=== PATIENT | female | born 1930 | race African-American/Black ===

== ENCOUNTER 2019-04-15 09:55 | Inpatient (IN) | payer BC ==
[~2019-04-15] VITALS: Ht 162.6 cm; Wt 46.8 kg
[2019-04-15 10:53] LABS: BILIRUBIN,URINE SMALL (NEG); CLARITY,URINE CLEAR; COLOR,URINE YELLOW; NITRITE,URINE NEGATIVE (NEG); PH,URINE 5.5; PROTEIN,URINE 100 mg/dL (NEG-TRACE)
[2019-04-15] MEDS ORDERED: IV NORMAL SALINE 500ML BAG 500 ML IV ONE (11:00)
[2019-04-15 11:08] LABS: RBC,URINE RARE /HPF (0-2); WBC,URINE OCC /HPF (0-4)
[2019-04-15 11:09] LABS: AMORPHOUS SEDIMENT,UR PRESENT /HPF; BACTERIA,URINE 0 /HPF (0-FEW); SQUAMOUS EPITHELIAL CELL,UR FEW /LPF
[2019-04-15 11:10] LABS: FECAL OB PT NEGATIVE (NEG)
[2019-04-15 12:07] LABS: BASO % 1 % (0-3); EOS % 0 % (0-3); HEMATOCRIT 31.6 % (36.0-47.0); HEMOGLOBIN 10.3 g/dL (12.0-15.5); LYMPH # 0.7 x10^3/uL (1.0-4.8); LYMPH % 13 % (24-48); MEAN CORPUSCULAR HEMOGLOBIN 30 pg (25-35); MEAN CORPUSCULAR HGB CONC 33 g/dL (31-37); MEAN CORPUSCULAR VOLUME 90 fL (79-100); MONO # 0.3 x10^3/uL (0.0-1.1); MONO % 5 % (0-9); NEUT # 4.5 x10^3/uL (1.8-7.7); NEUT % 81 % (31-73); PLATELET COUNT 203 x10^3/uL (140-400); RED BLOOD COUNT 3.49 x10^6/uL (3.50-5.40); RED CELL DISTRIBUTION WIDTH 16.3 % (11.5-14.5); WHITE BLOOD COUNT 5.6 x10^3/uL (4.0-11.0)
[2019-04-15 12:16] LABS: PROTHROMBIN TIME PATIENT 13.7 SEC (11.7-14.0)
[2019-04-15 12:26] LABS: ANION GAP 12 (6-14); BLOOD UREA NITROGEN 21 mg/dL (7-20); BUN/CREATININE RATIO 16 (6-20); CALCIUM 9.2 mg/dL (8.5-10.1); CARBON DIOXIDE 25 mmol/L (21-32); CHLORIDE 105 mmol/L (98-107); CREATININE 1.3 mg/dL (0.6-1.0); GLUCOSE 118 mg/dL (70-99); POTASSIUM 3.6 mmol/L (3.5-5.1); SODIUM 142 mmol/L (136-145)
[2019-04-15 12:31] LABS: ALBUMIN/GLOBULIN RATIO 0.9 (1.0-1.7); ALK PHOS 66 U/L (46-116); AST (SGOT) 16 U/L (15-37); TOTAL BILIRUBIN 0.2 mg/dL (0.2-1.0); TOTAL PROTEIN 6.5 g/dL (6.4-8.2)
[2019-04-15 12:35] LABS: ALT (SGPT) < 6 U/L (14-59)
[2019-04-15] MEDS ORDERED: IOHEXOL 350 MG/ML 100 ML VIAL. IV ONE (12:45)
[2019-04-15] MEDS ORDERED: CONTRAST GIVEN. MC PRN (13:00)
--- NOTE | 2019-04-15 13:28 | RAD ---
EXAM: CT Angiography of the Abdomen and Pelvis INDICATION: Rectal bleeding TECHNIQUE: CT angiography of the abdomen and pelvis was performed with and without intravenous contrast. Arterial and portal venous phase imaging was performed. Vascular 3D images were generated on a dedicated workstation and reviewed. All CT scans performed at this facility utilize dose optimization techniques as appropriate to the exam, including the following: Automated exposure control and adjustment of the mA and/or KV according to patient size (this includes techniques or standardized protocols for targeted exams where dose is indication/reason for exam). IV CONTRAST: Administered COMPARISON: None FINDINGS: VASCULAR FINDINGS: Precontrast images show no evidence of a sentinel clot or pooling of acute blood products. The arterial phase images reveal no blush of contrast suspicious for active, arterial bleeding. The portal venous phase showed no abnormal enhancement suspicious for acute hemorrhage. There are extensive arterial calcifications in the abdominal aorta and its major branch vessels. Abdominal Aorta and Branches: Celiac axis: No significant stenosis. SMA: No significant stenosis. NATHAN: No significant stenosis. Right renal vessels: Single right renal artery shows no hemodynamically significant stenosis Left renal vessels: There are 2 left renal arteries whose origins are in close proximity. No significant stenosis. Infrarenal aorta: No significant stenosis or aneurysm. Pelvic Vessels: R. Common iliac artery: No significant stenosis. R. External iliac artery: No significant stenosis. R. Internal iliac artery: No significant stenosis. L. Common iliac artery: No significant stenosis. L. External iliac artery: No significant stenosis. L. Internal iliac artery: No significant stenosis. Right Lower Extremity: R. Common femoral artery: No significant stenosis. R. Profunda femoris artery: No significant stenosis. R. SFA: No significant stenosis. Left Lower Extremity: L. Common femoral artery: No significant stenosis. L. Profunda femoris artery: No significant stenosis. L. SFA: No significant stenosis. NON VASCULAR FINDINGS: Numerous layering gallstones, multilevel degenerative spondylosis of the lumbar spine and mild generalized osteopenia. Small amount of pelvic free fluid. IMPRESSION: 1. Extensive atherosclerotic calcifications in the abdominal vessels without evidence of active hemorrhage in the bowel or of flow-limiting stenosis or aneurysm. 2. Multiple additional incidental findings as described in the body of the report. Electronically signed by: Ofelia Briggs MD (04/15/2019 1:25 PM) [facility]
--- NOTE | 2019-04-15 13:40 | PHYS DOC ---
Past Medical History Past Medical History: Hypertension Past Surgical History: Hysterectomy, Other Additional Past Surgical Histo: HERNIA Smoking Status: Never Smoker Alcohol Use: None Adult General Chief Complaint Chief Complaint: VAGINAL BLEEDING HPI HPI Patient is a 88 year old AA female accompanied by her daughter with complaints of vaginal bleeding that began 2 days ago. Daughter states that this morning she found her mother sitting on her bed with a lot of blood clots from her vagina. T he patient told her daughter that she felt weak when she got up to use the restroom so she sat back in the bed. Pt denies abdominal pain, nausea, vomiting, diarrhea, melena, dizziness, chest pain, palpitations, back pain, hematuria, dysuria, fever, cough, or shortness of breath. Pt denies any blood thinner use or taking aspirin. Pt currently denies any pain. Daughter states that her mother used to take aspirin at night but patient denies this. Daughter reports hx of hypertension, and early dementia. Pt just moved here from [place] last December and has not established primary care in this area yet. All other ROS is neg unless otherwise noted in HPI. Review of Systems Review of Systems See Above Current Medications Current Medications Current Medications Medications (Trade) Dose Ordered Sig/Yamile Start Time Stop Time Status Last Admin Dose Admin Info (CONTRAST GIVEN -- Rx MONITORING) 1 each PRN DAILY PRN 04/15/19 13:00 04/17/19 12:59 Iohexol (Omnipaque 350 Mg/ml) 60 ml 1X ONCE 04/15/19 12:45 04/15/19 12:46 DC 04/15/19 12:49 60 ML Sodium Chloride 500 ml @ 500 mls/hr 1X ONCE 04/15/19 11:00 04/15/19 11:59 DC 04/15/19 11:51 500 MLS/HR Allergies Allergies Allergies Coded Allergies Type Severity Reaction Last Updated Verified No Known Drug Allergies 04/15/19 No Physical Exam Physical Exam See Above Constitutional: Well developed, well nourished, no acute distress, non-toxic appearance, hard of hearing. [] HENT: Normocephalic, atraumatic, bilateral external ears normal, oropharynx moist, no oral exudates, nose normal. [] Eyes: PERRLA, EOMI, conjunctiva normal, no discharge. [] Neck: Normal range of motion, no tenderness, supple, no stridor. [] Cardiovascular:Heart rate regular rhythm, no murmur [] Lungs & Thorax: Bilateral breath sounds clear to auscultation [] Pelvic Exam: [employer] present Jessica RN Abdomen: Bowel sounds normal, soft, no tenderness, no masses, no pulsatile masses. External Genitalia: Normal Skin, no tears Speculum: deferred Bimanual: No adnexal masses or tenderness, no bloody discharge Rectal Exam: Normal tone, No mass, Positive control Stool: Maroon Guaiac: Negative Skin: cool, dry, no erythema, no rash. [] Extremities: No cyanosis, no clubbing, ROM intact, no edema. [] Neurologic: Alert and oriented X 3, no focal deficits noted. [] Psychologic: Affect normal, judgement normal, mood normal. [] Current Patient Data Vital Signs Vital Signs Date Time Temp Pulse Resp B/P (MAP) Pulse Ox O2 Delivery O2 Flow Rate FiO2 04/15/19 12:59 74 16 186/86 (119) 100 04/15/19 12:19 Nasal Cannula 2.0 04/15/19 11:35 97.5 97.5 Lab Values Laboratory Tests Test 04/15/19 10:35 04/15/19 10:38 04/15/19 10:45 04/15/19 11:40 Urine Collection Type U cath Urine Color Yellow Urine Clarity Clear Urine pH 5.5 Urine Specific [place] 1.020 Urine Protein 100 mg/dL (NEG-TRACE) Urine Glucose (UA) Negative mg/dL (NEG) Urine Ketones (Stick) Negative mg/dL (NEG) Urine Blood Negative (NEG) Urine Nitrite Negative (NEG) Urine Bilirubin Small (NEG) Urine Urobilinogen Dipstick 1.0 mg/dL (0.2 mg/dL) Urine Leukocyte Esterase Negative (NEG) Urine RBC Rare /HPF (0-2) Urine WBC Occ /HPF (0-4) Urine Squamous Epithelial Cells Few /LPF Urine Amorphous Sediment Present /HPF Urine Bacteria 0 /HPF (0-FEW) Urine Mucus Slight /LPF Stool Occult Blood Negative (NEG) Iron Level 70 ug/dL (50-170) Total Iron Binding Capacity 226 ug/dL (250-450) L Iron Saturation 31 % (15-34) Vitamin B12 Level 397 pg/mL (247-911) Prothrombin Time 13.7 SEC (11.7-14.0) Prothrombin Time INR 1.1 (0.8-1.1) Activated Partial Thromboplast Time 20 SEC (24-38) L Sodium Level 142 mmol/L (136-145) Potassium Level 3.6 mmol/L (3.5-5.1) Chloride Level 105 mmol/L (98-107) Carbon Dioxide Level 25 mmol/L (21-32) Anion Gap 12 (6-14) Blood Urea Nitrogen 21 mg/dL (7-20) H Creatinine 1.3 mg/dL (0.6-1.0) H Estimated GFR (Cockcroft-Gault) 47.0 BUN/Creatinine Ratio 16 (6-20) Glucose Level 118 mg/dL (70-99) H Calcium Level 9.2 mg/dL (8.5-10.1) Total Bilirubin 0.2 mg/dL (0.2-1.0) Aspartate Amino Transferase (AST) 16 U/L (15-37) Alanine Aminotransferase (ALT) < 6 U/L (14-59) L Alkaline Phosphatase 66 U/L (46-116) Total Protein 6.5 g/dL (6.4-8.2) Albumin 3.0 g/dL (3.4-5.0) L Albumin/Globulin Ratio 0.9 (1.0-1.7) L Test 04/15/19 11:45 White Blood Count 5.6 x10^3/uL (4.0-11.0) Red Blood Count 3.49 x10^6/uL (3.50-5.40) L Hemoglobin 10.3 g/dL (12.0-15.5) L Hematocrit 31.6 % (36.0-47.0) L Mean Corpuscular Volume 90 fL (79-100) Mean Corpuscular Hemoglobin 30 pg (25-35) Mean Corpuscular Hemoglobin Concent 33 g/dL (31-37) Red Cell Distribution Width 16.3 % (11.5-14.5) H Platelet Count 203 x10^3/uL (140-400) Neutrophils (%) (Auto) 81 % (31-73) H Lymphocytes (%) (Auto) 13 % (24-48) L Monocytes (%) (Auto) 5 % (0-9) Eosinophils (%) (Auto) 0 % (0-3) Basophils (%) (Auto) 1 % (0-3) Neutrophils # (Auto) 4.5 x10^3/uL (1.8-7.7) Lymphocytes # (Auto) 0.7 x10^3/uL (1.0-4.8) L Monocytes # (Auto) 0.3 x10^3/uL (0.0-1.1) Eosinophils # (Auto) 0.0 x10^3/uL (0.0-0.7) Basophils # (Auto) 0.0 x10^3/uL (0.0-0.2) Laboratory Tests 04/15/19 11:45 Laboratory Tests 04/15/19 11:40 EKG EKG 1100- sinus tachycardia rate 109, no STEMI read by Dr. Vidal[] 1354- SR rate 77, no STEMI read by Dr. Vidal Radiology/Procedures Radiology/Procedures PROCEDURE: CT ANGIOGRAPHY ABD AND PELVIS EXAM: CT Angiography of the Abdomen and Pelvis INDICATION: Rectal bleeding TECHNIQUE: CT angiography of the abdomen and pelvis was performed with and without intravenous contrast. Arterial and portal venous phase imaging was performed. Vascular 3D images were generated on a dedicated workstation and reviewed. All CT scans performed at this facility utilize dose optimization techniques as appropriate to the exam, including the following: Automated exposure control and adjustment of the mA and/or KV according to patient size (this includes techniques or standardized protocols for targeted exams where dose is indication/reason for exam). IV CONTRAST: Administered COMPARISON: None FINDINGS: VASCULAR FINDINGS: Precontrast images show no evidence of a sentinel clot or pooling of acute blood products. The arterial phase images reveal no blush of contrast suspicious for active, arterial bleeding. The portal venous phase showed no abnormal enhancement suspicious for acute hemorrhage. There are extensive arterial calcifications in the abdominal aorta and its major branch vessels. Abdominal Aorta and Branches: Celiac axis: No significant stenosis. SMA: No significant stenosis. NATHAN: No significant stenosis. Right renal vessels: Single right renal artery shows no hemodynamically significant stenosis Left renal vessels: There are 2 left renal arteries whose origins are in close proximity. No significant stenosis. Infrarenal aorta: No significant stenosis or aneurysm. Pelvic Vessels: R. Common iliac artery: No significant stenosis. R. External iliac artery: No significant stenosis. R. Internal iliac artery: No significant stenosis. L. Common iliac artery: No significant stenosis. L. External iliac artery: No significant stenosis. L. Internal iliac artery: No significant stenosis. Right Lower Extremity: R. Common femoral artery: No significant stenosis. R. Profunda femoris artery: No significant stenosis. R. SFA: No significant stenosis. Left Lower Extremity: L. Common femoral artery: No significant stenosis. L. Profunda femoris artery: No significant stenosis. L. SFA: No significant stenosis. NON VASCULAR FINDINGS: Numerous layering gallstones, multilevel degenerative spondylosis of the lumbar spine and mild generalized osteopenia. Small amount of pelvic free fluid. IMPRESSION: 1. Extensive atherosclerotic calcifications in the abdominal vessels without evidence of active hemorrhage in the bowel or of flow-limiting stenosis or aneurysm. 2. Multiple additional incidental findings as described in the body of the report. Course & Med Decision Making Course & Med Decision Making Pertinent Labs and Imaging studies reviewed. (See chart for details) 1352- Spoke with Dr. Vaca who is the admitting physician, and care was assumed following discussion of patient. Patient's vital signs stable. Patient remains afebrile, appears nontoxic, respirations even and unlabored. Patient will be admitted to the med/tele floor. Patient's case and plan of care also discussed with Dr. Vidal [] Chet Disclaimer Chet Disclaimer This electronic medical record was generated, in whole or in part, using a voice recognition dictation system. Departure Departure Impression: Primary Impression: Rectal bleed Disposition: ADMITTED INPATIENT Admitting Physician: KYLEE mena) Condition: STABLE Referrals: NO PCP (PCP) NICOLE ARMSTRONG APRN Apr 15, 2019 13:40
--- NOTE | 2019-04-15 14:56 | EKG ---
[facility] [address] [place] [address] Test Date: 2019-04-15 Test Time: 13:54:55 Pat Name: MOIRA DAVIS Department: Room: Gender: F [facility]: [facility] : 1930 Requested By: STAFF NON Order Number: [id number] Reading MD: Measurements Intervals [place] Rate: 77 P: 7 GA: 176 QRS: -30 QRSD: 144 T: 124 QT: 428 QTc: 486 Interpretive Statements SINUS RHYTHM ABNORMAL LEFT AXIS DEVIATION NON SPECIFIC INTRAVENTRICULAR BLOCK QRS(T) CONTOUR ABNORMALITY CONSIDER ANTEROLATERAL MYOCARDIAL DAMAGE ABNORMAL ECG RI6.01 No previous ECG available for comparison
--- NOTE | 2019-04-15 14:58 | EKG ---
[facility] [address] [place] [address] Test Date: 2019-04-15 Test Time: 11:00:13 Pat Name: MOIRA DAVIS Department: Room: Gender: F Y[employer]uber: : 1930 Requested By: NICOLE ARMSTRONG Order Number: [id number] Reading MD: Measurements Intervals [place] Rate: 109 P: -129 IL: 154 QRS: 22 QRSD: 86 T: -159 QT: 348 QTc: 470 Interpretive Statements SUPRAVENTRICULAR RHYTHM QRS(T) CONTOUR ABNORMALITY CONSIDER ANTEROLATERAL MYOCARDIAL DAMAGE ST & T ABNORMALITY, CONSIDER INFERIOR ISCHEMIA OR LEFT VENTRICULAR STRAIN ABNORMAL ECG RI6.01 No previous ECG available for comparison
[2019-04-15] MEDS ORDERED: ACETAMINOPHEN 325 MG TABLET. PO PRN (15:45)
[2019-04-15] MEDS ORDERED: ZOLPIDEM 5 MG TABLET. PO PRN (15:45)
--- NOTE | 2019-04-15 16:03 | PDOC1 ---
History and Physical Date of Admission Date of Admission 04/15/2019 Source Source: Chart review, Patient History of Present Illness History of Present Illness Patient is an 88-year-old female with past medical history of hypertension who recently moved to this area from [place]. She was living with 3 of her sisters been as home and [facility] [place] independently until they unfortunately had to move independently and are patient came to her daughter in [place]. This morning the patient was in the toilet and she presented hematochezia. The patient denied abdominal discomfort no recent history off excess NSAID use no history of epigastric pain no history of black tarry stools no history of straining or constipation was reported. She denies weight loss. The patient has had a colonoscopy in the past and this was done in [place] around November 2018. The patient has not had any changes to her medications and she takes only amlodipine for blood pressure. She was told to take a baby aspirin as well as part of her daily medications and she has not abused the dosage either. She has not had dietary transgressions no sick contacts either. She was found to have hemodynamically stable condition and H&H above 10, due to the severity of the symptoms this morning we have been asked to admit for GI evaluation. She is in no acute distress denies dyspnea no paroxysmal nocturnal dyspnea was reported no ringing in the ears no pica no headache or blurred vision no other symptoms were reported. Plan of care has been explained detail to the patient and his daughter. CODE STATUS was briefly asked to the patient she said that all things should be done toward her heart stop. She remains a full code Past Medical History Cardiovascular: HTN Social History Smoke: No ALCOHOL: none Drugs: None Current Problem List Problem List Problems Medical Problems: (1) Rectal bleed Status: Acute Current Medications Current Medications Current Medications Medications (Trade) Dose Ordered Sig/Yamile Start Time Stop Time Status Last Admin Dose Admin Acetaminophen (Tylenol) 650 mg PRN Q4HRS PRN 04/15/19 15:45 Info (CONTRAST GIVEN -- Rx MONITORING) 1 each PRN DAILY PRN 04/15/19 13:00 04/17/19 12:59 Iohexol (Omnipaque 350 Mg/ml) 60 ml 1X ONCE 04/15/19 12:45 04/15/19 12:46 DC 04/15/19 12:49 60 ML Sodium Chloride 500 ml @ 500 mls/hr 1X ONCE 04/15/19 11:00 04/15/19 11:59 DC 04/15/19 11:51 500 MLS/HR Zolpidem Tartrate (Ambien) 5 mg PRN QHS PRN 04/15/19 15:45 Allergies Allergies Allergies Coded Allergies Type Severity Reaction Last Updated Verified No Known Drug Allergies 04/15/19 No ROS Review of System CONSTITUTIONAL: No fever or chills EYES: No recent changes SKIN: No rash or itching CARDIOVASCULAR: No chest pain, syncope, palpitations, or edema RESPIRATORY: No SOB or cough GASTROINTESTINAL: No nausea, vomiting or abdominal pain NEUROLOGICAL: No headaches or weakness ENDOCRINE: No cold or heat intolerance GENITOURINARY: No urgency or frequency of urination MUSCULOSKELETAL: No back pain or joint pain LYMPHATICS: No enlarged lymph nodes PSYCHIATRIC: No anxiety or depression Physical Exam Physical Exam GEN.: Elderly thin and frail No apparent distress. Alert and oriented. HEENT: Head is normocephalic, atraumatic NECK: Supple. LUNGS: Clear to auscultation. HEART: RRR, S1, S2 present. Peripheral pulses intact ABDOMEN: Soft, nontender. Positive bowel sounds. EXTREMITIES: Without any cyanosis. NEUROLOGIC: Normal speech, normal tone gram nerves II-12 grossly intact no motor or sensory deficits appreciated PSYCHIATRIC: Normal affect, normal mood. SKIN: No ulcerations Vitals Vitals Vital Signs Date Time Temp Pulse Resp B/P (MAP) Pulse Ox O2 Delivery O2 Flow Rate FiO2 04/15/19 11:49 74 16 154/90 (111) 99 Room Air 04/15/19 11:35 97.5 97.5 Labs Labs Laboratory Tests Test 04/15/19 10:35 04/15/19 10:38 04/15/19 11:40 04/15/19 11:45 Urine Collection Type U cath Urine Color Yellow Urine Clarity Clear Urine pH 5.5 Urine Specific [place] 1.020 Urine Protein 100 mg/dL (NEG-TRACE) Urine Glucose (UA) Negative mg/dL (NEG) Urine Ketones (Stick) Negative mg/dL (NEG) Urine Blood Negative (NEG) Urine Nitrite Negative (NEG) Urine Bilirubin Small (NEG) Urine Urobilinogen Dipstick 1.0 mg/dL (0.2 mg/dL) Urine Leukocyte Esterase Negative (NEG) Urine RBC Rare /HPF (0-2) Urine WBC Occ /HPF (0-4) Urine Squamous Epithelial Cells Few /LPF Urine Amorphous Sediment Present /HPF Urine Bacteria 0 /HPF (0-FEW) Urine Mucus Slight /LPF Stool Occult Blood Negative (NEG) Prothrombin Time 13.7 SEC (11.7-14.0) Prothromb Time International Ratio 1.1 (0.8-1.1) Activated Partial Thromboplast Time 20 SEC (24-38) Sodium Level 142 mmol/L (136-145) Potassium Level 3.6 mmol/L (3.5-5.1) Chloride Level 105 mmol/L (98-107) Carbon Dioxide Level 25 mmol/L (21-32) Anion Gap 12 (6-14) Blood Urea Nitrogen 21 mg/dL (7-20) Creatinine 1.3 mg/dL (0.6-1.0) Estimated GFR (Cockcroft-Gault) 47.0 BUN/Creatinine Ratio 16 (6-20) Glucose Level 118 mg/dL (70-99) Calcium Level 9.2 mg/dL (8.5-10.1) Total Bilirubin 0.2 mg/dL (0.2-1.0) Aspartate Amino Transf (AST/SGOT) 16 U/L (15-37) Alanine Aminotransferase (ALT/SGPT) < 6 U/L (14-59) Alkaline Phosphatase 66 U/L (46-116) Total Protein 6.5 g/dL (6.4-8.2) Albumin 3.0 g/dL (3.4-5.0) Albumin/Globulin Ratio 0.9 (1.0-1.7) White Blood Count 5.6 x10^3/uL (4.0-11.0) Red Blood Count 3.49 x10^6/uL (3.50-5.40) Hemoglobin 10.3 g/dL (12.0-15.5) Hematocrit 31.6 % (36.0-47.0) Mean Corpuscular Volume 90 fL (79-100) Mean Corpuscular Hemoglobin 30 pg (25-35) Mean Corpuscular Hemoglobin Concent 33 g/dL (31-37) Red Cell Distribution Width 16.3 % (11.5-14.5) Platelet Count 203 x10^3/uL (140-400) Neutrophils (%) (Auto) 81 % (31-73) Lymphocytes (%) (Auto) 13 % (24-48) Monocytes (%) (Auto) 5 % (0-9) Eosinophils (%) (Auto) 0 % (0-3) Basophils (%) (Auto) 1 % (0-3) Neutrophils # (Auto) 4.5 x10^3/uL (1.8-7.7) Lymphocytes # (Auto) 0.7 x10^3/uL (1.0-4.8) Monocytes # (Auto) 0.3 x10^3/uL (0.0-1.1) Eosinophils # (Auto) 0.0 x10^3/uL (0.0-0.7) Basophils # (Auto) 0.0 x10^3/uL (0.0-0.2) Laboratory Tests Test 04/15/19 10:35 04/15/19 10:38 04/15/19 11:40 04/15/19 11:45 Urine Collection Type U cath Urine Color Yellow Urine Clarity Clear Urine pH 5.5 Urine Specific [place] 1.020 Urine Protein 100 mg/dL (NEG-TRACE) Urine Glucose (UA) Negative mg/dL (NEG) Urine Ketones (Stick) Negative mg/dL (NEG) Urine Blood Negative (NEG) Urine Nitrite Negative (NEG) Urine Bilirubin Small (NEG) Urine Urobilinogen Dipstick 1.0 mg/dL (0.2 mg/dL) Urine Leukocyte Esterase Negative (NEG) Urine RBC Rare /HPF (0-2) Urine WBC Occ /HPF (0-4) Urine Squamous Epithelial Cells Few /LPF Urine Amorphous Sediment Present /HPF Urine Bacteria 0 /HPF (0-FEW) Urine Mucus Slight /LPF Stool Occult Blood Negative (NEG) Prothrombin Time 13.7 SEC (11.7-14.0) Prothromb Time International Ratio 1.1 (0.8-1.1) Activated Partial Thromboplast Time 20 SEC (24-38) Sodium Level 142 mmol/L (136-145) Potassium Level 3.6 mmol/L (3.5-5.1) Chloride Level 105 mmol/L (98-107) Carbon Dioxide Level 25 mmol/L (21-32) Anion Gap 12 (6-14) Blood Urea Nitrogen 21 mg/dL (7-20) Creatinine 1.3 mg/dL (0.6-1.0) Estimated GFR (Cockcroft-Gault) 47.0 BUN/Creatinine Ratio 16 (6-20) Glucose Level 118 mg/dL (70-99) Calcium Level 9.2 mg/dL (8.5-10.1) Total Bilirubin 0.2 mg/dL (0.2-1.0) Aspartate Amino Transf (AST/SGOT) 16 U/L (15-37) Alanine Aminotransferase (ALT/SGPT) < 6 U/L (14-59) Alkaline Phosphatase 66 U/L (46-116) Total Protein 6.5 g/dL (6.4-8.2) Albumin 3.0 g/dL (3.4-5.0) Albumin/Globulin Ratio 0.9 (1.0-1.7) White Blood Count 5.6 x10^3/uL (4.0-11.0) Red Blood Count 3.49 x10^6/uL (3.50-5.40) Hemoglobin 10.3 g/dL (12.0-15.5) Hematocrit 31.6 % (36.0-47.0) Mean Corpuscular Volume 90 fL (79-100) Mean Corpuscular Hemoglobin 30 pg (25-35) Mean Corpuscular Hemoglobin Concent 33 g/dL (31-37) Red Cell Distribution Width 16.3 % (11.5-14.5) Platelet Count 203 x10^3/uL (140-400) Neutrophils (%) (Auto) 81 % (31-73) Lymphocytes (%) (Auto) 13 % (24-48) Monocytes (%) (Auto) 5 % (0-9) Eosinophils (%) (Auto) 0 % (0-3) Basophils (%) (Auto) 1 % (0-3) Neutrophils # (Auto) 4.5 x10^3/uL (1.8-7.7) Lymphocytes # (Auto) 0.7 x10^3/uL (1.0-4.8) Monocytes # (Auto) 0.3 x10^3/uL (0.0-1.1) Eosinophils # (Auto) 0.0 x10^3/uL (0.0-0.7) Basophils # (Auto) 0.0 x10^3/uL (0.0-0.2) VTE Prophylaxis Ordered VTE Prophylaxis Devices: Yes VTE Pharmacological Prophylaxi: No Assessment/Plan Assessment/Plan Hematochezia most likely diverticular bleed Normocytic anemia History of essential hypertension Advanced age Underweight. She may have a mild case of protein calorie malnutrition Plan: Continue monitoring hemodynamics For further bleeding Reassess labs in the a.m. GI consult Resume home medications VT prophylaxis with SCD SANDRA MARTÍNEZ MD Apr 15, 2019 16:03
--- NOTE | 2019-04-15 16:12 | PDOC2 ---
GI CONSULT Reason For Consult: GI bleeding HPI: HPI: 88 y/o female w/ dementia, history from daughter Delmi with whom she has lived since 12/2018. Found this morning sitting in pool of red blood. Thought it might have come from vagina, h/o hysterectomy. No reflux/heartburn. No dysphagia. Decreased appetite and weight loss (more than 100 pounds) x 5-6 years - daughter attributes to dentures. No n/v. No diarrhea or constipation. No abd pain. No melena. Unclear if previous EGD, remote h/o "ulcer." Might have had a colonoscopy last year in [place] when she was living with her sisters. Gallstones on imaging here. No liver or pancreas history. No NSAID use. PMH: PMH: HTN, hysterectomy, dementia FH: Family History: No pertinent hx Social History: Smoke: No ALCOHOL: none Drugs: None ROS: Limited with dementia but denies pain. Vitals: Vitals: Vital Signs Date Time Temp Pulse Resp B/P (MAP) Pulse Ox O2 Delivery O2 Flow Rate FiO2 04/15/19 11:49 74 16 154/90 (111) 99 Room Air 04/15/19 11:35 97.5 97.5 Labs: Labs: Laboratory Tests Test 04/15/19 10:35 04/15/19 10:38 04/15/19 11:40 04/15/19 11:45 Urine Collection Type U cath Urine Color Yellow Urine Clarity Clear Urine pH 5.5 Urine Specific [place] 1.020 Urine Protein 100 mg/dL (NEG-TRACE) Urine Glucose (UA) Negative mg/dL (NEG) Urine Ketones (Stick) Negative mg/dL (NEG) Urine Blood Negative (NEG) Urine Nitrite Negative (NEG) Urine Bilirubin Small (NEG) Urine Urobilinogen Dipstick 1.0 mg/dL (0.2 mg/dL) Urine Leukocyte Esterase Negative (NEG) Urine RBC Rare /HPF (0-2) Urine WBC Occ /HPF (0-4) Urine Squamous Epithelial Cells Few /LPF Urine Amorphous Sediment Present /HPF Urine Bacteria 0 /HPF (0-FEW) Urine Mucus Slight /LPF Stool Occult Blood Negative (NEG) Prothrombin Time 13.7 SEC (11.7-14.0) Prothromb Time International Ratio 1.1 (0.8-1.1) Activated Partial Thromboplast Time 20 SEC (24-38) Sodium Level 142 mmol/L (136-145) Potassium Level 3.6 mmol/L (3.5-5.1) Chloride Level 105 mmol/L (98-107) Carbon Dioxide Level 25 mmol/L (21-32) Anion Gap 12 (6-14) Blood Urea Nitrogen 21 mg/dL (7-20) Creatinine 1.3 mg/dL (0.6-1.0) Estimated GFR (Cockcroft-Gault) 47.0 BUN/Creatinine Ratio 16 (6-20) Glucose Level 118 mg/dL (70-99) Calcium Level 9.2 mg/dL (8.5-10.1) Total Bilirubin 0.2 mg/dL (0.2-1.0) Aspartate Amino Transf (AST/SGOT) 16 U/L (15-37) Alanine Aminotransferase (ALT/SGPT) < 6 U/L (14-59) Alkaline Phosphatase 66 U/L (46-116) Total Protein 6.5 g/dL (6.4-8.2) Albumin 3.0 g/dL (3.4-5.0) Albumin/Globulin Ratio 0.9 (1.0-1.7) White Blood Count 5.6 x10^3/uL (4.0-11.0) Red Blood Count 3.49 x10^6/uL (3.50-5.40) Hemoglobin 10.3 g/dL (12.0-15.5) Hematocrit 31.6 % (36.0-47.0) Mean Corpuscular Volume 90 fL (79-100) Mean Corpuscular Hemoglobin 30 pg (25-35) Mean Corpuscular Hemoglobin Concent 33 g/dL (31-37) Red Cell Distribution Width 16.3 % (11.5-14.5) Platelet Count 203 x10^3/uL (140-400) Neutrophils (%) (Auto) 81 % (31-73) Lymphocytes (%) (Auto) 13 % (24-48) Monocytes (%) (Auto) 5 % (0-9) Eosinophils (%) (Auto) 0 % (0-3) Basophils (%) (Auto) 1 % (0-3) Neutrophils # (Auto) 4.5 x10^3/uL (1.8-7.7) Lymphocytes # (Auto) 0.7 x10^3/uL (1.0-4.8) Monocytes # (Auto) 0.3 x10^3/uL (0.0-1.1) Eosinophils # (Auto) 0.0 x10^3/uL (0.0-0.7) Basophils # (Auto) 0.0 x10^3/uL (0.0-0.2) Allergies: Coded Allergies: No Known Drug Allergies (Unverified , 04/15/19) Medications: Current Medications Medications (Trade) Dose Ordered Sig/Yamile Route PRN Reason Start Time Stop Time Status Last Admin Dose Admin Sodium Chloride 500 ml @ 500 mls/hr 1X ONCE IV 04/15/19 11:00 04/15/19 11:59 DC 04/15/19 11:51 Iohexol (Omnipaque 350 Mg/ml) 60 ml 1X ONCE IV 04/15/19 12:45 04/15/19 12:46 DC 04/15/19 12:49 Imaging: Imaging: CT angio A/P IMPRESSION: 1. Extensive atherosclerotic calcifications in the abdominal vessels without evidence of active hemorrhage in the bowel or of flow-limiting stenosis or aneurysm. 2. Multiple additional incidental findings as described in the body of the report - please see [facility] records. PE: GEN: NAD, thin HEENT: Atraumatic, PERRL LUNGS: CTAB HEART: RRR ABD: NABS, S/ND/NT EXTREMITY: No edema SKIN: No rashes, no jaundice NEURO/PSYCH: pleasantly confused A/P: A/P: ?hematochezia Anemia, Hemoccult negative - no previous labs to compare Decreased appetite, weight loss - for at least 5 years CRC screen - might have had a colonoscopy in [place] last year Cholelithiasis, atherosclerosis - noted on imaging Dementia -- Daughter concerned that she hasn't eaten since yesterday. Reviewed w/ Dr. Kaufman - ice chips and IVF for now, monitor labs - called and d/w nurse. Add empiric acid-data analytics architect, check anemia parameters. KAYLIE FONSECA Apr 15, 2019 16:12
[2019-04-15] MEDS: PANTOPRAZOLE IV PUSH 40 MG VIAL. IVP SCH (18:26)
[2019-04-15 19:25] VITALS: BP 131/79
[2019-04-15] MEDS: IV NORMAL SALINE 1000ML BAG 1,000 ML IV SCH (23:00)
[2019-04-15 23:20] VITALS: BP 161/85
[2019-04-16] VITALS (11 sets, daily range): BP systolic 132–194; BP diastolic 71–102
[2019-04-16 03:26] LABS: BASO % 0 % (0-3); EOS % 0 % (0-3); HEMATOCRIT 23.7 % (36.0-47.0); HEMOGLOBIN 7.8 g/dL (12.0-15.5); LYMPH # 1.2 x10^3/uL (1.0-4.8); LYMPH % 28 % (24-48); MEAN CORPUSCULAR HEMOGLOBIN 29 pg (25-35); MEAN CORPUSCULAR HGB CONC 33 g/dL (31-37); MEAN CORPUSCULAR VOLUME 89 fL (79-100); MONO # 0.3 x10^3/uL (0.0-1.1); MONO % 8 % (0-9); NEUT # 2.8 x10^3/uL (1.8-7.7); NEUT % 64 % (31-73); PLATELET COUNT 179 x10^3/uL (140-400); RED BLOOD COUNT 2.66 x10^6/uL (3.50-5.40); RED CELL DISTRIBUTION WIDTH 16.8 % (11.5-14.5); WHITE BLOOD COUNT 4.3 x10^3/uL (4.0-11.0)
[2019-04-16 03:36] LABS: CALCIUM 8.3 mg/dL (8.5-10.1); CREATININE 1.2 mg/dL (0.6-1.0); GFR 51.5; POTASSIUM 3.6 mmol/L (3.5-5.1)
[2019-04-16] MEDS: IV NORMAL SALINE 1000ML BAG 1,000 ML IV SCH (07:10)
--- NOTE | 2019-04-16 07:42 | PDOC ---
PROGRESS NOTES Chief Complaint Chief Complaint A/P: Hematochezia most likely diverticular bleed Acute blood loss anemia - Hb drop from >10 to 7.8. Will transfuse 1 unit History of essential hypertension - amlodipine daily Advanced age Underweight mild protein calorie malnutrition History of Present Illness History of Present Illness Ms Mena is an 88 y/o female w/ PMHx HTN, dementia, history from daughter Delmi with whom she has lived since 12/2018. Found this morning sitting in pool of red blood. Thought it might have come from vagina, h/o hysterectomy. No reflux/heartburn. No dysphagia. Decreased appetite and weight loss (more than 100 pounds) x 5-6 years - daughter attributes to dentures. No n/v. No diarrhea or constipation. No abd pain. No melena. Unclear if previous EGD, remote h/o "ulcer." Had a colonoscopy last year in [place] when she was living with her sisters. Gallstones on imaging here. No liver or pancreas history. No NSAID use. She was found to have hemodynamically stable condition and H&H above 10, but dropped to 7.8 within 8 hours, due to the severity of the symptoms this morning we have been asked to admit for GI evaluation. She is in no acute distress denies dyspnea no paroxysmal nocturnal dyspnea was reported no ringing in the ears no pica no headache or blurred vision no other symptoms were reported. BP stable, actually elevated. Plan of care has been explained detail to the patient and his daughter. No further bleeding overnight. CT angiogram negative for acute bleeding. Getting blood today. No CP or SOB. Plan: Repeat Hb in AM Treat diverticulosis Likely d/c in AM Vitals Vitals Vital Signs Date Time Temp Pulse Resp B/P (MAP) Pulse Ox O2 Delivery O2 Flow Rate FiO2 04/16/19 03:20 98.4 65 16 148/71 (96) 97 Room Air 98.4 04/15/19 19:37 2.0 Physical Exam General: Alert, Oriented X3, Cooperative Heart: Regular rate, Normal S1, Normal S2 Lungs: Clear Abdomen: Normal bowel sounds, Soft Extremities: No clubbing, No cyanosis Skin: No rashes, No breakdown Labs LABS Laboratory Tests Test 04/15/19 10:35 04/15/19 10:38 04/15/19 10:45 04/15/19 11:40 Urine Collection Type U cath Urine Color Yellow Urine Clarity Clear Urine pH 5.5 Urine Specific [place] 1.020 Urine Protein 100 mg/dL (NEG-TRACE) Urine Glucose (UA) Negative mg/dL (NEG) Urine Ketones (Stick) Negative mg/dL (NEG) Urine Blood Negative (NEG) Urine Nitrite Negative (NEG) Urine Bilirubin Small (NEG) Urine Urobilinogen Dipstick 1.0 mg/dL (0.2 mg/dL) Urine Leukocyte Esterase Negative (NEG) Urine RBC Rare /HPF (0-2) Urine WBC Occ /HPF (0-4) Urine Squamous Epithelial Cells Few /LPF Urine Amorphous Sediment Present /HPF Urine Bacteria 0 /HPF (0-FEW) Urine Mucus Slight /LPF Stool Occult Blood Negative (NEG) Iron Level 70 ug/dL (50-170) Total Iron Binding Capacity 226 ug/dL (250-450) Iron Saturation 31 % (15-34) Vitamin B12 Level 397 pg/mL (247-911) Prothrombin Time 13.7 SEC (11.7-14.0) Prothromb Time International Ratio 1.1 (0.8-1.1) Activated Partial Thromboplast Time 20 SEC (24-38) Sodium Level 142 mmol/L (136-145) Potassium Level 3.6 mmol/L (3.5-5.1) Chloride Level 105 mmol/L (98-107) Carbon Dioxide Level 25 mmol/L (21-32) Anion Gap 12 (6-14) Blood Urea Nitrogen 21 mg/dL (7-20) Creatinine 1.3 mg/dL (0.6-1.0) Estimated GFR (Cockcroft-Gault) 47.0 BUN/Creatinine Ratio 16 (6-20) Glucose Level 118 mg/dL (70-99) Calcium Level 9.2 mg/dL (8.5-10.1) Total Bilirubin 0.2 mg/dL (0.2-1.0) Aspartate Amino Transf (AST/SGOT) 16 U/L (15-37) Alanine Aminotransferase (ALT/SGPT) < 6 U/L (14-59) Alkaline Phosphatase 66 U/L (46-116) Total Protein 6.5 g/dL (6.4-8.2) Albumin 3.0 g/dL (3.4-5.0) Albumin/Globulin Ratio 0.9 (1.0-1.7) Test 04/15/19 11:45 04/16/19 02:30 White Blood Count 5.6 x10^3/uL (4.0-11.0) 4.3 x10^3/uL (4.0-11.0) Red Blood Count 3.49 x10^6/uL (3.50-5.40) 2.66 x10^6/uL (3.50-5.40) Hemoglobin 10.3 g/dL (12.0-15.5) 7.8 g/dL (12.0-15.5) Hematocrit 31.6 % (36.0-47.0) 23.7 % (36.0-47.0) Mean Corpuscular Volume 90 fL (79-100) 89 fL (79-100) Mean Corpuscular Hemoglobin 30 pg (25-35) 29 pg (25-35) Mean Corpuscular Hemoglobin Concent 33 g/dL (31-37) 33 g/dL (31-37) Red Cell Distribution Width 16.3 % (11.5-14.5) 16.8 % (11.5-14.5) Platelet Count 203 x10^3/uL (140-400) 179 x10^3/uL (140-400) Neutrophils (%) (Auto) 81 % (31-73) 64 % (31-73) Lymphocytes (%) (Auto) 13 % (24-48) 28 % (24-48) Monocytes (%) (Auto) 5 % (0-9) 8 % (0-9) Eosinophils (%) (Auto) 0 % (0-3) 0 % (0-3) Basophils (%) (Auto) 1 % (0-3) 0 % (0-3) Neutrophils # (Auto) 4.5 x10^3/uL (1.8-7.7) 2.8 x10^3/uL (1.8-7.7) Lymphocytes # (Auto) 0.7 x10^3/uL (1.0-4.8) 1.2 x10^3/uL (1.0-4.8) Monocytes # (Auto) 0.3 x10^3/uL (0.0-1.1) 0.3 x10^3/uL (0.0-1.1) Eosinophils # (Auto) 0.0 x10^3/uL (0.0-0.7) 0.0 x10^3/uL (0.0-0.7) Basophils # (Auto) 0.0 x10^3/uL (0.0-0.2) 0.0 x10^3/uL (0.0-0.2) Sodium Level 144 mmol/L (136-145) Potassium Level 3.6 mmol/L (3.5-5.1) Chloride Level 109 mmol/L (98-107) Carbon Dioxide Level 26 mmol/L (21-32) Anion Gap 9 (6-14) Blood Urea Nitrogen 23 mg/dL (7-20) Creatinine 1.2 mg/dL (0.6-1.0) Estimated GFR (Cockcroft-Gault) 51.5 Glucose Level 83 mg/dL (70-99) Calcium Level 8.3 mg/dL (8.5-10.1) Assessment and Plan Assessmemt and Plan Problems Medical Problems: (1) Rectal bleed Status: Acute Comment Review of Relevant I have reviewed the following items sheng (where applicable) has been applied. Labs Laboratory Tests Test 04/15/19 10:35 04/15/19 10:38 04/15/19 10:45 04/15/19 11:40 Urine Collection Type U cath Urine Color Yellow Urine Clarity Clear Urine pH 5.5 Urine Specific [place] 1.020 Urine Protein 100 mg/dL (NEG-TRACE) Urine Glucose (UA) Negative mg/dL (NEG) Urine Ketones (Stick) Negative mg/dL (NEG) Urine Blood Negative (NEG) Urine Nitrite Negative (NEG) Urine Bilirubin Small (NEG) Urine Urobilinogen Dipstick 1.0 mg/dL (0.2 mg/dL) Urine Leukocyte Esterase Negative (NEG) Urine RBC Rare /HPF (0-2) Urine WBC Occ /HPF (0-4) Urine Squamous Epithelial Cells Few /LPF Urine Amorphous Sediment Present /HPF Urine Bacteria 0 /HPF (0-FEW) Urine Mucus Slight /LPF Stool Occult Blood Negative (NEG) Iron Level 70 ug/dL (50-170) Total Iron Binding Capacity 226 ug/dL (250-450) Iron Saturation 31 % (15-34) Vitamin B12 Level 397 pg/mL (247-911) Prothrombin Time 13.7 SEC (11.7-14.0) Prothromb Time International Ratio 1.1 (0.8-1.1) Activated Partial Thromboplast Time 20 SEC (24-38) Sodium Level 142 mmol/L (136-145) Potassium Level 3.6 mmol/L (3.5-5.1) Chloride Level 105 mmol/L (98-107) Carbon Dioxide Level 25 mmol/L (21-32) Anion Gap 12 (6-14) Blood Urea Nitrogen 21 mg/dL (7-20) Creatinine 1.3 mg/dL (0.6-1.0) Estimated GFR (Cockcroft-Gault) 47.0 BUN/Creatinine Ratio 16 (6-20) Glucose Level 118 mg/dL (70-99) Calcium Level 9.2 mg/dL (8.5-10.1) Total Bilirubin 0.2 mg/dL (0.2-1.0) Aspartate Amino Transf (AST/SGOT) 16 U/L (15-37) Alanine Aminotransferase (ALT/SGPT) < 6 U/L (14-59) Alkaline Phosphatase 66 U/L (46-116) Total Protein 6.5 g/dL (6.4-8.2) Albumin 3.0 g/dL (3.4-5.0) Albumin/Globulin Ratio 0.9 (1.0-1.7) Test 04/15/19 11:45 04/16/19 02:30 White Blood Count 5.6 x10^3/uL (4.0-11.0) 4.3 x10^3/uL (4.0-11.0) Red Blood Count 3.49 x10^6/uL (3.50-5.40) 2.66 x10^6/uL (3.50-5.40) Hemoglobin 10.3 g/dL (12.0-15.5) 7.8 g/dL (12.0-15.5) Hematocrit 31.6 % (36.0-47.0) 23.7 % (36.0-47.0) Mean Corpuscular Volume 90 fL (79-100) 89 fL (79-100) Mean Corpuscular Hemoglobin 30 pg (25-35) 29 pg (25-35) Mean Corpuscular Hemoglobin Concent 33 g/dL (31-37) 33 g/dL (31-37) Red Cell Distribution Width 16.3 % (11.5-14.5) 16.8 % (11.5-14.5) Platelet Count 203 x10^3/uL (140-400) 179 x10^3/uL (140-400) Neutrophils (%) (Auto) 81 % (31-73) 64 % (31-73) Lymphocytes (%) (Auto) 13 % (24-48) 28 % (24-48) Monocytes (%) (Auto) 5 % (0-9) 8 % (0-9) Eosinophils (%) (Auto) 0 % (0-3) 0 % (0-3) Basophils (%) (Auto) 1 % (0-3) 0 % (0-3) Neutrophils # (Auto) 4.5 x10^3/uL (1.8-7.7) 2.8 x10^3/uL (1.8-7.7) Lymphocytes # (Auto) 0.7 x10^3/uL (1.0-4.8) 1.2 x10^3/uL (1.0-4.8) Monocytes # (Auto) 0.3 x10^3/uL (0.0-1.1) 0.3 x10^3/uL (0.0-1.1) Eosinophils # (Auto) 0.0 x10^3/uL (0.0-0.7) 0.0 x10^3/uL (0.0-0.7) Basophils # (Auto) 0.0 x10^3/uL (0.0-0.2) 0.0 x10^3/uL (0.0-0.2) Sodium Level 144 mmol/L (136-145) Potassium Level 3.6 mmol/L (3.5-5.1) Chloride Level 109 mmol/L (98-107) Carbon Dioxide Level 26 mmol/L (21-32) Anion Gap 9 (6-14) Blood Urea Nitrogen 23 mg/dL (7-20) Creatinine 1.2 mg/dL (0.6-1.0) Estimated GFR (Cockcroft-Gault) 51.5 Glucose Level 83 mg/dL (70-99) Calcium Level 8.3 mg/dL (8.5-10.1) Laboratory Tests Test 04/15/19 10:35 04/15/19 10:38 04/15/19 10:45 04/15/19 11:40 Urine Collection Type U cath Urine Color Yellow Urine Clarity Clear Urine pH 5.5 Urine Specific [place] 1.020 Urine Protein 100 mg/dL (NEG-TRACE) Urine Glucose (UA) Negative mg/dL (NEG) Urine Ketones (Stick) Negative mg/dL (NEG) Urine Blood Negative (NEG) Urine Nitrite Negative (NEG) Urine Bilirubin Small (NEG) Urine Urobilinogen Dipstick 1.0 mg/dL (0.2 mg/dL) Urine Leukocyte Esterase Negative (NEG) Urine RBC Rare /HPF (0-2) Urine WBC Occ /HPF (0-4) Urine Squamous Epithelial Cells Few /LPF Urine Amorphous Sediment Present /HPF Urine Bacteria 0 /HPF (0-FEW) Urine Mucus Slight /LPF Stool Occult Blood Negative (NEG) Iron Level 70 ug/dL (50-170) Total Iron Binding Capacity 226 ug/dL (250-450) Iron Saturation 31 % (15-34) Vitamin B12 Level 397 pg/mL (247-911) Prothrombin Time 13.7 SEC (11.7-14.0) Prothromb Time International Ratio 1.1 (0.8-1.1) Activated Partial Thromboplast Time 20 SEC (24-38) Sodium Level 142 mmol/L (136-145) Potassium Level 3.6 mmol/L (3.5-5.1) Chloride Level 105 mmol/L (98-107) Carbon Dioxide Level 25 mmol/L (21-32) Anion Gap 12 (6-14) Blood Urea Nitrogen 21 mg/dL (7-20) Creatinine 1.3 mg/dL (0.6-1.0) Estimated GFR (Cockcroft-Gault) 47.0 BUN/Creatinine Ratio 16 (6-20) Glucose Level 118 mg/dL (70-99) Calcium Level 9.2 mg/dL (8.5-10.1) Total Bilirubin 0.2 mg/dL (0.2-1.0) Aspartate Amino Transf (AST/SGOT) 16 U/L (15-37) Alanine Aminotransferase (ALT/SGPT) < 6 U/L (14-59) Alkaline Phosphatase 66 U/L (46-116) Total Protein 6.5 g/dL (6.4-8.2) Albumin 3.0 g/dL (3.4-5.0) Albumin/Globulin Ratio 0.9 (1.0-1.7) Test 04/15/19 11:45 04/16/19 02:30 White Blood Count 5.6 x10^3/uL (4.0-11.0) 4.3 x10^3/uL (4.0-11.0) Red Blood Count 3.49 x10^6/uL (3.50-5.40) 2.66 x10^6/uL (3.50-5.40) Hemoglobin 10.3 g/dL (12.0-15.5) 7.8 g/dL (12.0-15.5) Hematocrit 31.6 % (36.0-47.0) 23.7 % (36.0-47.0) Mean Corpuscular Volume 90 fL (79-100) 89 fL (79-100) Mean Corpuscular Hemoglobin 30 pg (25-35) 29 pg (25-35) Mean Corpuscular Hemoglobin Concent 33 g/dL (31-37) 33 g/dL (31-37) Red Cell Distribution Width 16.3 % (11.5-14.5) 16.8 % (11.5-14.5) Platelet Count 203 x10^3/uL (140-400) 179 x10^3/uL (140-400) Neutrophils (%) (Auto) 81 % (31-73) 64 % (31-73) Lymphocytes (%) (Auto) 13 % (24-48) 28 % (24-48) Monocytes (%) (Auto) 5 % (0-9) 8 % (0-9) Eosinophils (%) (Auto) 0 % (0-3) 0 % (0-3) Basophils (%) (Auto) 1 % (0-3) 0 % (0-3) Neutrophils # (Auto) 4.5 x10^3/uL (1.8-7.7) 2.8 x10^3/uL (1.8-7.7) Lymphocytes # (Auto) 0.7 x10^3/uL (1.0-4.8) 1.2 x10^3/uL (1.0-4.8) Monocytes # (Auto) 0.3 x10^3/uL (0.0-1.1) 0.3 x10^3/uL (0.0-1.1) Eosinophils # (Auto) 0.0 x10^3/uL (0.0-0.7) 0.0 x10^3/uL (0.0-0.7) Basophils # (Auto) 0.0 x10^3/uL (0.0-0.2) 0.0 x10^3/uL (0.0-0.2) Sodium Level 144 mmol/L (136-145) Potassium Level 3.6 mmol/L (3.5-5.1) Chloride Level 109 mmol/L (98-107) Carbon Dioxide Level 26 mmol/L (21-32) Anion Gap 9 (6-14) Blood Urea Nitrogen 23 mg/dL (7-20) Creatinine 1.2 mg/dL (0.6-1.0) Estimated GFR (Cockcroft-Gault) 51.5 Glucose Level 83 mg/dL (70-99) Calcium Level 8.3 mg/dL (8.5-10.1) Medications Current Medications Sodium Chloride 500 ml @ 500 mls/hr 1X ONCE IV Last administered on 04/15/19at 11:51; Start 04/15/19 at 11:00; Stop 04/15/19 at 11:59; Status DC Iohexol (Omnipaque 350 Mg/ml) 60 ml 1X ONCE IV Last administered on 04/15/19at 12:49; Start 04/15/19 at 12:45; Stop 04/15/19 at 12:46; Status DC Info (CONTRAST GIVEN -- Rx MONITORING) 1 each PRN DAILY PRN MC SEE COMMENTS; Start 04/15/19 at 13:00; Stop 04/17/19 at 12:59 Zolpidem Tartrate (Ambien) 5 mg PRN QHS PRN PO INSOMNIA; Start 04/15/19 at 15:45 Acetaminophen (Tylenol) 650 mg PRN Q4HRS PRN PO TEMP OVER 100.4F OR MILD PAIN; Start 04/15/19 at 15:45 Pantoprazole Sodium (PROTONIX VIAL for IV PUSH) 40 mg DAILYAC IVP Last a dministered on 04/15/19at 18:26; Start 04/15/19 at 17:00 Sodium Chloride 1,000 ml @ 75 mls/hr [id number] IV Last administered on 04/16/19at 07:10; Start 04/15/19 at 23:00 Vitals/I & O Vital Sign - Last 24 Hours 04/15/19 04/15/19 04/15/19 04/15/19 10:13 10:49 11:19 11:35 Temp 95.4 97.5 95.4 97.5 Pulse 70 74 70 Resp 20 20 20 B/P (MAP) 155/88 (110) 158/106 (123) 133/90 (104) Pulse Ox 100 96 100 O2 Delivery Room Air Room Air 04/15/19 04/15/19 04/15/19 04/15/19 11:49 12:19 12:59 13:59 Pulse 74 60 74 70 Resp 16 16 16 16 B/P (MAP) 154/90 (111) 148/80 (102) 186/86 (119) 167/94 (118) Pulse Ox 99 100 100 100 O2 Delivery Nasal Cannula Nasal Cannula O2 Flow Rate 2.0 2.0 04/15/19 04/15/19 04/15/19 04/15/19 14:59 16:00 19:25 19:37 Temp 98.5 98.5 Pulse 64 71 Resp 16 16 B/P (MAP) 161/92 (115) 131/79 (96) Pulse Ox 100 98 O2 Delivery Nasal Cannula Nasal Cannula Room Air Nasal Cannula O2 Flow Rate 2.0 2.0 2.0 04/15/19 04/16/19 23:20 03:20 Temp 99.1 98.4 99.1 98.4 Pulse 63 65 Resp 16 16 B/P (MAP) 161/85 (110) 148/71 (96) Pulse Ox 97 97 O2 Delivery Room Air Room Air Intake and Output 04/15/19 04/15/19 04/16/19 15:00 23:00 07:00 Intake Total 200 ml Balance 200 ml MARIANNE CARABALLO MD Apr 16, 2019 07:42
[2019-04-16] MEDS ORDERED: CYANOCOBALAMIN (VITAMIN B-12) 1,000 MCG/ML VIAL IM ONE (07:45)
[2019-04-16] MEDS: PANTOPRAZOLE IV PUSH 40 MG VIAL. IVP SCH (08:27)
--- NOTE | 2019-04-16 09:41 | PDOC ---
Subjective: Subjective: No recurrent bleeding per daughter and pt. Wondering about 'scopes - also wants nothing invasive. Wants her to eat. If nothing else to be done, says she can monitor at home where she would complain less and she could have her back here in 10 min if bleeding recurred. Objective: Objective: No bleeding per nurse, family wants her to eat. Vital Signs: Vital Signs Date Time Temp Pulse Resp B/P (MAP) Pulse Ox O2 Delivery O2 Flow Rate FiO2 04/16/19 08:00 Room Air 04/16/19 07:00 98.2 66 18 145/79 (101) 98 98.2 04/15/19 19:37 2.0 Labs: Laboratory Tests Test 04/15/19 10:35 04/15/19 10:38 04/15/19 10:45 04/15/19 11:40 Urine Collection Type U cath Urine Color Yellow Urine Clarity Clear Urine pH 5.5 Urine Specific [place] 1.020 Urine Protein 100 mg/dL Urine Glucose (UA) Negative mg/dL Urine Ketones (Stick) Negative mg/dL Urine Blood Negative Urine Nitrite Negative Urine Bilirubin Small Urine Urobilinogen Dipstick 1.0 mg/dL Urine Leukocyte Esterase Negative Urine RBC Rare /HPF Urine WBC Occ /HPF Urine Squamous Epithelial Cells Few /LPF Urine Amorphous Sediment Present /HPF Urine Bacteria 0 /HPF Urine Mucus Slight /LPF Stool Occult Blood Negative Iron Level 70 ug/dL Total Iron Binding Capacity 226 ug/dL Iron Saturation 31 % Vitamin B12 Level 397 pg/mL Prothrombin Time 13.7 SEC Prothromb Time International Ratio 1.1 Activated Partial Thromboplast Time 20 SEC Sodium Level 142 mmol/L Potassium Level 3.6 mmol/L Chloride Level 105 mmol/L Carbon Dioxide Level 25 mmol/L Anion Gap 12 Blood Urea Nitrogen 21 mg/dL Creatinine 1.3 mg/dL Estimated GFR (Cockcroft-Gault) 47.0 BUN/Creatinine Ratio 16 Glucose Level 118 mg/dL Calcium Level 9.2 mg/dL Total Bilirubin 0.2 mg/dL Aspartate Amino Transf (AST/SGOT) 16 U/L Alanine Aminotransferase (ALT/SGPT) < 6 U/L Alkaline Phosphatase 66 U/L Total Protein 6.5 g/dL Albumin 3.0 g/dL Albumin/Globulin Ratio 0.9 Test 04/15/19 11:45 04/16/19 02:30 White Blood Count 5.6 x10^3/uL 4.3 x10^3/uL Red Blood Count 3.49 x10^6/uL 2.66 x10^6/uL Hemoglobin 10.3 g/dL 7.8 g/dL Hematocrit 31.6 % 23.7 % Mean Corpuscular Volume 90 fL 89 fL Mean Corpuscular Hemoglobin 30 pg 29 pg Mean Corpuscular Hemoglobin Concent 33 g/dL 33 g/dL Red Cell Distribution Width 16.3 % 16.8 % Platelet Count 203 x10^3/uL 179 x10^3/uL Neutrophils (%) (Auto) 81 % 64 % Lymphocytes (%) (Auto) 13 % 28 % Monocytes (%) (Auto) 5 % 8 % Eosinophils (%) (Auto) 0 % 0 % Basophils (%) (Auto) 1 % 0 % Neutrophils # (Auto) 4.5 x10^3/uL 2.8 x10^3/uL Lymphocytes # (Auto) 0.7 x10^3/uL 1.2 x10^3/uL Monocytes # (Auto) 0.3 x10^3/uL 0.3 x10^3/uL Eosinophils # (Auto) 0.0 x10^3/uL 0.0 x10^3/uL Basophils # (Auto) 0.0 x10^3/uL 0.0 x10^3/uL Sodium Level 144 mmol/L Potassium Level 3.6 mmol/L Chloride Level 109 mmol/L Carbon Dioxide Level 26 mmol/L Anion Gap 9 Blood Urea Nitrogen 23 mg/dL Creatinine 1.2 mg/dL Estimated GFR (Cockcroft-Gault) 51.5 Glucose Level 83 mg/dL Calcium Level 8.3 mg/dL PE: GEN: NAD LUNGS: CTAB HEART: RRR ABD: NABS, S/ND/NT NEURO/PSYCH: pleasantly confused A/P: ?hematochezia - no recurrence, ?colonoscopy last year in [place] Anemia, Hemoccult negative - Hgb from 10.1 to 7.8 Decreased appetite, weight loss - chronic issue, daughter attributes to dentures Dementia -- Reviewed daughter's concerns with Dr. Kaufman - okay to try clears, also recom mends transfusion 1 unit pBRCs - called to nurse. Low normal B12 - ?start replacement. Hemodynamically unstable?: No Is patient in severe pain?: No Is NPO status required?: No KAYLIE FONSECA Apr 16, 2019 09:41
[2019-04-16] MEDS ORDERED: LABETALOL 20 MG/4 ML DISP.SYRIN. IVP PRN (12:30)
[2019-04-16] MEDS: amLODIPine BESYLATE 10 MG TABLET PO SCH (13:04)
[2019-04-16] MEDS: PSYLLIUM HUSK (SUGAR FREE) 1 PKT PACKET PO SCH (13:05)
--- NOTE | 2019-04-16 15:40 | NUR ---
SS following for discharge planning. SS reviewed pt chart. Pt is from home with daughter and is currently on room air. PT/OT recommending home with care. SS will continue to follow for discharge planning.
[2019-04-17 03:33] VITALS: BP 184/94
[2019-04-17 07:00] VITALS: BP 174/85
[2019-04-17] MEDS ORDERED: PANTOPRAZOLE 40 MG TABLET.DR. PO SCH (07:30)
--- NOTE | 2019-04-17 07:31 | PDOC ---
PROGRESS NOTES Chief Complaint Chief Complaint A/P: Hematochezia most likely diverticular bleed Acute blood loss anemia - Hb drop from >10 to 7.8. Will transfuse 1 unit History of essential hypertension - amlodipine daily Advanced age Underweight mild protein calorie malnutrition History of Present Illness History of Present Illness Ms Mena is an 88 y/o female w/ PMHx HTN, dementia, history from daughter Delmi with whom she has lived since 12/2018. Found this morning sitting in pool of red blood. Thought it might have come from vagina, h/o hysterectomy. No reflux/heartburn. No dysphagia. Decreased appetite and weight loss (more than 100 pounds) x 5-6 years - daughter attributes to dentures. No n/v. No diarrhea or constipation. No abd pain. No melena. Unclear if previous EGD, remote h/o "ulcer." Had a colonoscopy last year in [place] when she was living with her sisters. Gallstones on imaging here. No liver or pancreas history. No NSAID use. She was found to have hemodynamically stable condition and H&H above 10, but dropped to 7.8 within 8 hours, due to the severity of the symptoms this morning we have been asked to admit for GI evaluation. She is in no acute distress denies dyspnea no paroxysmal nocturnal dyspnea was reported no ringing in the ears no pica no headache or blurred vision no other symptoms were reported. BP stable, actually elevated. Plan of care has been explained detail to the patient and his daughter. 04/16: No further bleeding overnight. CT angiogram negative for acute bleeding. Getting blood today. No CP or SOB. Hb up to 10 post transfusion. No further bleeding, ready for home. Plan: Repeat Hb in AM Treat diverticulosis Likely d/c in AM Vitals Vitals Vital Signs Date Time Temp Pulse Resp B/P (MAP) Pulse Ox O2 Delivery O2 Flow Rate FiO2 04/17/19 04:05 78 184/94 04/17/19 03:33 98.1 18 100 Room Air 98.1 04/16/19 20:03 2.0 Physical Exam General: Alert, Oriented X3, Cooperative Heart: Regular rate, Normal S1, Normal S2 Lungs: Clear Abdomen: Normal bowel sounds, Soft Extremities: No clubbing, No cyanosis Skin: No rashes, No breakdown Assessment and Plan Assessmemt and Plan Problems Medical Problems: (1) Rectal bleed Status: Acute Comment Review of Relevant I have reviewed the following items sheng (where applicable) has been applied. Labs Laboratory Tests Test 04/15/19 10:35 04/15/19 10:38 04/15/19 10:45 04/15/19 11:40 Urine Collection Type U cath Urine Color Yellow Urine Clarity Clear Urine pH 5.5 Urine Specific [place] 1.020 Urine Protein 100 mg/dL (NEG-TRACE) Urine Glucose (UA) Negative mg/dL (NEG) Urine Ketones (Stick) Negative mg/dL (NEG) Urine Blood Negative (NEG) Urine Nitrite Negative (NEG) Urine Bilirubin Small (NEG) Urine Urobilinogen Dipstick 1.0 mg/dL (0.2 mg/dL) Urine Leukocyte Esterase Negative (NEG) Urine RBC Rare /HPF (0-2) Urine WBC Occ /HPF (0-4) Urine Squamous Epithelial Cells Few /LPF Urine Amorphous Sediment Present /HPF Urine Bacteria 0 /HPF (0-FEW) Urine Mucus Slight /LPF Stool Occult Blood Negative (NEG) Iron Level 70 ug/dL (50-170) Total Iron Binding Capacity 226 ug/dL (250-450) Iron Saturation 31 % (15-34) Vitamin B12 Level 397 pg/mL (247-911) Prothrombin Time 13.7 SEC (11.7-14.0) Prothromb Time International Ratio 1.1 (0.8-1.1) Activated Partial Thromboplast Time 20 SEC (24-38) Sodium Level 142 mmol/L (136-145) Potassium Level 3.6 mmol/L (3.5-5.1) Chloride Level 105 mmol/L (98-107) Carbon Dioxide Level 25 mmol/L (21-32) Anion Gap 12 (6-14) Blood Urea Nitrogen 21 mg/dL (7-20) Creatinine 1.3 mg/dL (0.6-1.0) Estimated GFR (Cockcroft-Gault) 47.0 BUN/Creatinine Ratio 16 (6-20) Glucose Level 118 mg/dL (70-99) Calcium Level 9.2 mg/dL (8.5-10.1) Total Bilirubin 0.2 mg/dL (0.2-1.0) Aspartate Amino Transf (AST/SGOT) 16 U/L (15-37) Alanine Aminotransferase (ALT/SGPT) < 6 U/L (14-59) Alkaline Phosphatase 66 U/L (46-116) Total Protein 6.5 g/dL (6.4-8.2) Albumin 3.0 g/dL (3.4-5.0) Albumin/Globulin Ratio 0.9 (1.0-1.7) Test 04/15/19 11:45 04/16/19 02:30 White Blood Count 5.6 x10^3/uL (4.0-11.0) 4.3 x10^3/uL (4.0-11.0) Red Blood Count 3.49 x10^6/uL (3.50-5.40) 2.66 x10^6/uL (3.50-5.40) Hemoglobin 10.3 g/dL (12.0-15.5) 7.8 g/dL (12.0-15.5) Hematocrit 31.6 % (36.0-47.0) 23.7 % (36.0-47.0) Mean Corpuscular Volume 90 fL (79-100) 89 fL (79-100) Mean Corpuscular Hemoglobin 30 pg (25-35) 29 pg (25-35) Mean Corpuscular Hemoglobin Concent 33 g/dL (31-37) 33 g/dL (31-37) Red Cell Distribution Width 16.3 % (11.5-14.5) 16.8 % (11.5-14.5) Platelet Count 203 x10^3/uL (140-400) 179 x10^3/uL (140-400) Neutrophils (%) (Auto) 81 % (31-73) 64 % (31-73) Lymphocytes (%) (Auto) 13 % (24-48) 28 % (24-48) Monocytes (%) (Auto) 5 % (0-9) 8 % (0-9) Eosinophils (%) (Auto) 0 % (0-3) 0 % (0-3) Basophils (%) (Auto) 1 % (0-3) 0 % (0-3) Neutrophils # (Auto) 4.5 x10^3/uL (1.8-7.7) 2.8 x10^3/uL (1.8-7.7) Lymphocytes # (Auto) 0.7 x10^3/uL (1.0-4.8) 1.2 x10^3/uL (1.0-4.8) Monocytes # (Auto) 0.3 x10^3/uL (0.0-1.1) 0.3 x10^3/uL (0.0-1.1) Eosinophils # (Auto) 0.0 x10^3/uL (0.0-0.7) 0.0 x10^3/uL (0.0-0.7) Basophils # (Auto) 0.0 x10^3/uL (0.0-0.2) 0.0 x10^3/uL (0.0-0.2) Sodium Level 144 mmol/L (136-145) Potassium Level 3.6 mmol/L (3.5-5.1) Chloride Level 109 mmol/L (98-107) Carbon Dioxide Level 26 mmol/L (21-32) Anion Gap 9 (6-14) Blood Urea Nitrogen 23 mg/dL (7-20) Creatinine 1.2 mg/dL (0.6-1.0) Estimated GFR (Cockcroft-Gault) 51.5 Glucose Level 83 mg/dL (70-99) Calcium Level 8.3 mg/dL (8.5-10.1) Medications Current Medications Sodium Chloride 500 ml @ 500 mls/hr 1X ONCE IV Last administered on 04/15/19at 11:51; Start 04/15/19 at 11:00; Stop 04/15/19 at 11:59; Status DC Iohexol (Omnipaque 350 Mg/ml) 60 ml 1X ONCE IV Last administered on 04/15/19at 12:49; Start 04/15/19 at 12:45; Stop 04/15/19 at 12:46; Status DC Info (CONTRAST GIVEN -- Rx MONITORING) 1 each PRN DAILY PRN MC SEE COMMENTS; Start 04/15/19 at 13:00; Stop 04/17/19 at 12:59 Zolpidem Tartrate (Ambien) 5 mg PRN QHS PRN PO INSOMNIA; Start 04/15/19 at 15:45 Acetaminophen (Tylenol) 650 mg PRN Q4HRS PRN PO TEMP OVER 100.4F OR MILD PAIN; Start 2/5/20 at 15:45 Pantoprazole Sodium (PROTONIX VIAL for IV PUSH) 40 mg DAILYAC IVP Last administered on 04/16/19at 08:27; Start 04/15/19 at 17:00; Stop 04/16/19 at 09:37; Status DC Sodium Chloride 1,000 ml @ 75 mls/hr [id number] IV Last administered on 04/16/19at 07:10; Start 04/15/19 at 23:00; Stop 04/16/19 at 12:21; Status DC Cyanocobalamin (Vitamin B-12) 1,000 mcg 1X ONCE IM Last administered on 04/16/19at 10:45; Start 04/16/19 at 07:45; Stop 04/16/19 at 07:50; Status DC Pantoprazole Sodium (Protonix) 40 mg DAILYAC PO ; Start 04/17/19 at 07:30 Amlodipine Besylate (Norvasc) 10 mg DAILY PO Last administered on 04/16/19at 13:04; Start 04/16/19 at 12:30 Psyllium Hydrophilic Mucilloid (Metamucil Fiber Packet) 1 pkt DAILY PO Last administered on 04/16/19at 13:05; Start 04/16/19 at 12:30 Labetalol HCl (Normodyne Iv Push) 10 mg PRN Q2HR PRN IVP HYPERTENSION Last administered on 04/17/19at 04:05; Start 04/16/19 at 12:30 Vitals/I & O Vital Sign - Last 24 Hours 04/16/19 04/16/19 04/16/19 04/16/19 08:00 11:00 12:49 13:04 Temp 97.8 98.4 97.8 98.4 Pulse 79 82 82 Resp 18 16 B/P (MAP) 194/102 (132) 154/84 154/84 Pulse Ox 97 O2 Delivery Room Air Room Air 04/16/19 04/16/19 04/16/19 04/16/19 14:17 14:36 14:51 15:00 Temp 98.1 98.2 98.1 98.7 98.1 98.2 98.1 98.7 Pulse 85 84 74 72 Resp 20 18 22 18 B/P (MAP) 152/87 148/83 150/77 157/80 (105) Pulse Ox 98 O2 Delivery Room Air 04/16/19 04/16/19 04/16/19 04/16/19 15:58 19:38 20:03 23:26 Temp 98.7 98.4 98.7 98.4 Pulse 73 72 70 Resp 16 18 16 B/P (MAP) 132/85 184/92 (122) 174/84 (114) Pulse Ox 98 98 O2 Delivery Room Air Nasal Cannula Room Air O2 Flow Rate 2.0 04/17/19 04/17/19 03:33 04:05 Temp 98.1 98.1 Pulse 63 78 Resp 18 B/P (MAP) 184/94 (124) 184/94 Pulse Ox 100 O2 Delivery Room Air Intake and Output 04/16/19 04/16/19 04/17/19 15:00 23:00 07:00 Intake Total 300 ml 560 ml 0 ml Output Total 1 ml Balance 300 ml 559 ml 0 ml Hemodynamically unstable?: No Is patient in severe pain?: No Is NPO status required?: No MARIANNE CARABALLO MD Apr 17, 2019 07:31
[2019-04-17] MEDS: PSYLLIUM HUSK (SUGAR FREE) 1 PKT PACKET PO SCH (09:00)
[2019-04-17] MEDS: amLODIPine BESYLATE 10 MG TABLET PO SCH (09:50)
--- NOTE | 2019-04-17 10:22 | PDOC ---
Subjective: Subjective: Nurse called yesterday afternoon to report red bloody stool. No bleeding since. She's eating chips. Labs still pending this morning. S/p 1 unit pRBCs yesterday. Objective: Vital Signs: Vital Signs Date Time Temp Pulse Resp B/P (MAP) Pulse Ox O2 Delivery O2 Flow Rate FiO2 04/17/19 09:50 66 174/85 04/17/19 07:00 98.4 16 99 Room Air 98.4 04/16/19 20:03 2.0 PE: GEN: NAD, up in chair eating chips LUNGS: CTAB HEART: RRR ABD: NABS, S/ND/NT NEURO/PSYCH: pleasantly confused A/P: Hematochezia, anemia Decreased appetite, weight loss - attributed to denture issues per family Dementia, HTN -- ?diverticular bleed Awaiting labs. Hemodynamically unstable?: No Is patient in severe pain?: No Is NPO status required?: No KAYLIE FONSECA Apr 17, 2019 10:22
[2019-04-17 11:00] VITALS: BP 163/87
[2019-04-17 11:01] LABS: HEMATOCRIT 29.7 % (36.0-47.0); HEMOGLOBIN 10.1 g/dL (12.0-15.5); RED BLOOD COUNT 3.33 x10^6/uL (3.50-5.40); RED CELL DISTRIBUTION WIDTH 15.8 % (11.5-14.5); WHITE BLOOD COUNT 4.9 x10^3/uL (4.0-11.0)
[2019-04-17] MEDS ORDERED: PANT40TA77 PO (11:26)
[2019-04-17] MEDS ORDERED: AMLO10TA8 PO (11:26)
--- NOTE | 2019-04-17 12:11 | PDOC3 ---
Discharge Summary Visit Information Date of Admission: Apr 15, 2019 Date of Discharge: Apr 17, 2019 Admitting Diagnosis: Acute blood loss anemia Final Diagnosis Problems Medical Problems: (1) Rectal bleed Status: Acute Brief Hospital Course Allergies Allergies Coded Allergies Type Severity Reaction Last Updated Verified No Known Drug Allergies 04/15/19 No Vital Signs Vital Signs Date Time Temp Pulse Resp B/P (MAP) Pulse Ox O2 Delivery O2 Flow Rate FiO2 04/17/19 09:50 66 174/85 04/17/19 07:00 98.4 16 99 Room Air 98.4 04/16/19 20:03 2.0 Lab Results Laboratory Tests Test 04/16/19 02:30 04/17/19 10:32 White Blood Count 4.3 x10^3/uL (4.0-11.0) 4.9 x10^3/uL (4.0-11.0) Red Blood Count 2.66 x10^6/uL (3.50-5.40) 3.33 x10^6/uL (3.50-5.40) Hemoglobin 7.8 g/dL (12.0-15.5) 10.1 g/dL (12.0-15.5) Hematocrit 23.7 % (36.0-47.0) 29.7 % (36.0-47.0) Mean Corpuscular Volume 89 fL (79-100) 89 fL (79-100) Mean Corpuscular Hemoglobin 29 pg (25-35) 30 pg (25-35) Mean Corpuscular Hemoglobin Concent 33 g/dL (31-37) 34 g/dL (31-37) Red Cell Distribution Width 16.8 % (11.5-14.5) 15.8 % (11.5-14.5) Platelet Count 179 x10^3/uL (140-400) 187 x10^3/uL (140-400) Neutrophils (%) (Auto) 64 % (31-73) Lymphocytes (%) (Auto) 28 % (24-48) Monocytes (%) (Auto) 8 % (0-9) Eosinophils (%) (Auto) 0 % (0-3) Basophils (%) (Auto) 0 % (0-3) Neutrophils # (Auto) 2.8 x10^3/uL (1.8-7.7) Lymphocytes # (Auto) 1.2 x10^3/uL (1.0-4.8) Monocytes # (Auto) 0.3 x10^3/uL (0.0-1.1) Eosinophils # (Auto) 0.0 x10^3/uL (0.0-0.7) Basophils # (Auto) 0.0 x10^3/uL (0.0-0.2) Sodium Level 144 mmol/L (136-145) Potassium Level 3.6 mmol/L (3.5-5.1) Chloride Level 109 mmol/L (98-107) Carbon Dioxide Level 26 mmol/L (21-32) Anion Gap 9 (6-14) Blood Urea Nitrogen 23 mg/dL (7-20) Creatinine 1.2 mg/dL (0.6-1.0) Estimated GFR (Cockcroft-Gault) 51.5 Glucose Level 83 mg/dL (70-99) Calcium Level 8.3 mg/dL (8.5-10.1) Laboratory Tests Test 04/17/19 10:32 White Blood Count 4.9 x10^3/uL (4.0-11.0) Red Blood Count 3.33 x10^6/uL (3.50-5.40) Hemoglobin 10.1 g/dL (12.0-15.5) Hematocrit 29.7 % (36.0-47.0) Mean Corpuscular Volume 89 fL (79-100) Mean Corpuscular Hemoglobin 30 pg (25-35) Mean Corpuscular Hemoglobin Concent 34 g/dL (31-37) Red Cell Distribution Width 15.8 % (11.5-14.5) Platelet Count 187 x10^3/uL (140-400) Brief Hospital Course Ms Mena is an 88 y/o female w/ PMHx HTN, dementia, history from daughter Delmi with whom she has lived since 12/2018. Found this morning sitting in pool of red blood. Thought it might have come from vagina, h/o hysterectomy. No reflux/heartburn. No dysphagia. Decreased appetite and weight loss (more than 100 pounds) x 5-6 years - daughter attributes to dentures. No n/v. No diarrhea or constipation. No abd pain. No melena. Unclear if previous EGD, remote h/o "ulcer." Had a colonoscopy last year in [place] when she was living with her sisters. Gallstones on imaging here. No liver or pancreas history. No NSAID use. She was found to have hemodynamically stable condition and H&H above 10, but dropped to 7.8 within 8 hours, due to the severity of the symptoms this morning we have been asked to admit for GI evaluation. She is in no acute distress denies dyspnea no paroxysmal nocturnal dyspnea was reported no ringing in the ears no pica no headache or blurred vision no other symptoms were reported. BP stable, actually elevated. Plan of care has been explained detail to the patient and his daughter. 04/16: No further bleeding overnight. CT angiogram negative for acute bleeding. Getting blood today. No CP or SOB. Hb up to 10 post transfusion. No further bleeding, ready for home. Problem list: Hematochezia most likely diverticular bleed Acute blood loss anemia - Hb drop from >10 to 7.8. Will transfuse 1 unit History of essential hypertension - amlodipine daily Advanced age Underweight mild protein calorie malnutrition Plan: Repeat Hb in AM Treat diverticulosis Likely d/c in AM Discharge Information Condition at Discharge: Improved Follow Up: Weeks (1) Disposition/Orders: D/C to Home Scheduled Amlodipine Besylate (Amlodipine Besylate) 10 Mg Tablet, 10 MG PO DAILY for HTN for 30 Days, #30 Ref 2 Prescribed by: MARIANNE CARABALLO MD on 04/17/19 1126 Pantoprazole Sodium (Pantoprazole Sodium ) 40 Mg Tablet.dr, 40 MG PO DAILYAC for GERD for 30 Days, #30 Prescribed by: MARIANNE CARABALLO MD on 04/17/19 1126 Hemodynamically unstable?: No Is patient in severe pain?: No Is NPO status required?: No MARIANNE CARABALLO MD Apr 17, 2019 12:11
--- NOTE | 2019-04-17 12:31 | NUR ---
Pt discharged to home with daughter. Discharge teaching done and questions answered. Verbalized understanding.
== END 2019-04-17 12:36 | disposition home or self-care (01) | DRG 378 ==
LOC: ER 09:55 → 6 SOUTH 13:34
PROVIDERS: ADMIT Internal Medicine; ATTEND Internal Medicine
PROC: 30233N1 Transfusion of Nonautologous Red Blood Cells into Peripheral Vein, Percutaneous Approach (ICD-10-PCS; principal; 2019-04-15)
DX: K57.91 Diverticulosis of intestine, part unspecified, without perforation or abscess with bleeding (principal); E44.1 Mild protein-calorie malnutrition; D62 Acute posthemorrhagic anemia; Z68.1 Body mass index [BMI] 19.9 or less, adult; I10 Essential (primary) hypertension; F03.90 Unspecified dementia, unspecified severity, without behavioral disturbance, psychotic disturbance, mood disturbance, and anxiety; K80.20 Calculus of gallbladder without cholecystitis without obstruction; Z90.710 Acquired absence of both cervix and uterus
CPT/HCPCS: 36415; 74174; 80048; 80053; 81001; 82274; 82607; 83540; 83550; 85025; 85027; 85610; 85730; 86850; 86900; 86901; 86920; 93005; C9113; J3420; J3490; J7030; J7040; P9016; Q9967; G0378